=== PATIENT | female | born 1965 | race African-American/Black ===

== ENCOUNTER 2024-09-28 05:56 | Emergency (ER) | payer OTHER ==
[~2024-09-28] VITALS: Ht 167.6 cm; Wt 66.0 kg
[2024-09-28 06:01] VITALS: BP 151/90
[2024-09-28] MEDS: ALBUTEROL (0.083%) 2.5MG/3ML NEB HHN STA (06:01)
[2024-09-28 06:38] VITALS: TEMP 98.3
[2024-09-28] MEDS: ONDANSETRON HCL 4MG TABLET PO ONE (06:38)
[2024-09-28] MEDS: ACETAMINOPHEN 325MG TABLET PO ONE (06:38)
[2024-09-28 07:06] VITALS: PULSE 80; RESP 17; O2SAT 96
[2024-09-28] MEDS ORDERED: ONDA4TAB50 PO (08:18)
[2024-09-28] MEDS ORDERED: TOPUD MT (08:18)
== END 2024-09-28 08:50 | disposition home or self-care (01) ==
LOC: ER 05:56
DX: B34.9 Viral infection, unspecified (principal); J45.909 Unspecified asthma, uncomplicated; Z20.822 Contact with and (suspected) exposure to COVID-19
CPT/HCPCS: 87804 ×2; 71045; 94640; 99284; 87426; Q0162; Z7610 ×3